=== PATIENT | male | born 2000 | race American Indian/Alaskan Native ===

== ENCOUNTER 2018-12-08 12:57 | Emergency (ER) | payer SELFPAY ==
[2018-12-08 13:11] VITALS: BP 115/73
--- NOTE | 2018-12-08 13:11 | Emergency Department Report ---
Chief Complaint: Earache Stated Complaint: LT EAR CLOG Time Seen by Provider: 12/08/18 13:10 - HPI History of Present Illness: l ear clogged no fever debrox did not help pmh none psh test torsion in past rx none pcp none nontoxic VSS no fever MSE completed MSE screening note: Focused history and physical exam performed. Due to findings the following was ordered: ED Disposition for MSE Condition: Stable
--- NOTE | 2018-12-08 14:30 | Emergency Department Report ---
HPI - General Chief Complaint: Earache Time Seen by Provider: 12/08/18 13:10 - HPI HPI: This is a 18-year-old male here report that he has left earache from trying to clean his ear yesterday. He said that he does have any pain right now but when he has pain at 3/10 and out. Denies any trauma. Denies any bleeding or discharge from his ears. He reports that his ears feels clogged. Denies any nasal congestion or runny nose. Denies any cough. Denies any shortness of breath. ED Past Medical Hx - Past Medical History Previous Medical History?: No - Surgical History Past Surgical History?: Yes Additional Surgical History: testicular torsion repair - Family History Family history: no significant - Social History Smoking Status: Never Smoker Substance Use Type: None - Medications Home Medications: Home Medications Medication Instructions Recorded Confirmed Last Taken Type Neomy/Polymyx B/Hc (Otic) Soln 4 drops OTIC Q6H 7 Days #1 bottle 12/08/18 Unknown Rx [Cortisporin (Otic) Soln] ED Review of Systems ROS: Stated complaint: LT EAR CLOG Other details as noted in HPI Constitutional: denies: chills, fever ENT: ear pain. denies: throat pain, congestion Respiratory: denies: cough, shortness of breath, wheezing Cardiovascular: denies: chest pain, palpitations, edema, syncope Gastrointestinal: denies: vomiting, diarrhea, constipation Musculoskeletal: denies: back pain, joint swelling Skin: denies: rash Neurological: denies: headache Physical Exam - Physical Exam Vital Signs: Vital Signs 12/08/18 13:09 Temperature 98.1 F Pulse Rate 64 Respiratory 18 Rate Blood Pressure 115/73 O2 Sat by Pulse 98 Oximetry General: This is a 18-year-old male well-nourished well-developed in no acute distress. Physical Exam: Head: Normocephalic atraumatic Ears:Left eac with redness/ swelling without drainage Ravindra TM normal. No mastoid bone tenderness. Mouth: Moist, no pharyngeal erythema or exudate . UVULA midline and oral airways patent. No peritonsillar abscess Neck: Nontender to palpate, supple, normal range of motion. No adenopathy. No c- spine tenderness. Nose: Bilateral nasal mucosa normal mucosa. Maxillary and frontal sinuses tender to palpate. Eyes: Bilateral Sclerae and conjunctiva without injection. Bilateral pupils equal and reactive to light. Bilateral lids are normal. Normal accommodation.BEOMI Lungs: Clear to auscultate bilaterally, no rhonchi wheezes or rales. Normal work of breathing and no chest wall tenderness CV: S1, S2. Regular rate and rhythm negative murmur. Capillary refill is less than 3 seconds Extremity: No clubbing, cyanosis or edema. +2 pulses in all extremities and no neurovascular compromise Skin: Clean dry and intact, no rashes or lesions Psych: Normal mood and behavior ED Course Vital Signs 12/08/18 13:09 Temperature 98.1 F Pulse Rate 64 Respiratory 18 Rate Blood Pressure 115/73 O2 Sat by Pulse 98 Oximetry - Reevaluation(s) Reevaluation #1: 12/08/18 14:39 Patient stable in no acute distress at present ED Medical Decision Making - Medical Decision Making This is a 18-year-old patient here for left earache. Patient found to have otitis externa left ear. He will be discharged home on Corticosporin R Rangel solution and to follow-up with [facility] and 3-5 days as he does not have a primary care doctor. Critical care attestation.: If time is entered above; I have spent that time in minutes in the direct care of this critically ill patient, excluding procedure time. ED Disposition Clinical Impression: Otalgia, left ear Left otitis externa Qualifiers: Otitis externa type: unspecified type Chronicity: acute Qualified Code(s): H 60.502 - Unspecified acute noninfective otitis externa, left ear Disposition: - TO HOME OR SELFCARE Is pt being admited?: No Does the pt Need Aspirin: No Condition: Stable Instructions: Otitis Externa (ED), Earache (ED) Additional Instructions: Please avoid get an liquid in U year. Use antibiotic is dropped every 6 hours and still 4 drops in left ear 7 days Follow-up with primary care as instructed Prescriptions: Neomy/Polymyx B/Hc (Otic) Soln [Cortisporin (Otic) Soln] 4 drops OTIC Q6H 7 Days #1 bottle Referrals: [facility] [Outside] - 3-5 Days Forms: Work/School Release Form(ED)
== END 2018-12-08 14:50 | disposition home or self-care (01) ==
LOC: ED 12:57
DX: H60.502 Unspecified acute noninfective otitis externa, left ear (principal)